=== PATIENT | male | born 1990 | race Caucasian/White ===

== ENCOUNTER 2023-09-27 14:32 | Emergency (ER) | payer MEDICAID ==
[~2023-09-27] VITALS: Ht 170.2 cm; Wt 122.5 kg
[2023-09-27 15:01] VITALS: BP_SYST 129; PULSE 84; RESP 18; TEMP 98.4; O2SAT 95
[2023-09-27] MEDS ORDERED: IBUP-1969 PO (16:26)
[2023-09-27] MEDS: KETOROLAC TROMETHAMINE 60 MG/2 ML VIAL IM ONE (16:43)
[2023-09-27 16:50] VITALS: BP_SYST 129; PULSE 84; RESP 18; TEMP 98.4; O2SAT 95
== END 2023-09-27 16:50 | disposition home or self-care (01) ==
LOC: SED 14:32
DX: M25.561 Pain in right knee (principal); Z79.899 Other long term (current) drug therapy
CPT/HCPCS: 99283; 73564; 96372; J1885